=== PATIENT | male | born 1955 | race Caucasian/White ===

== ENCOUNTER 2017-07-13 13:25 | Emergency (ER) | payer OTHER ==
[~2017-07-13] VITALS: Ht 172.7 cm; Wt 86.4 kg
[~2017-07-13 13:25] MED LIST: GLYB2.5 PO; IBUP-2070 PO; LISI-660 PO; LOVA20 PO; METF500T4 PO; OXYC1TAB PO; PSEU-191 PO
[2017-07-13 14:07] LABS: GLUCOSE,POINT OF CARE 142 MG/DL (70-110)
[2017-07-13 14:35] VITALS: BP 143/93
[2017-07-13] MEDS ORDERED: KETOROLAC TROMETHAMINE 60 MG/2 ML VIAL IM ONE (14:45)
== END 2017-07-13 15:29 | disposition home or self-care (01) ==
LOC: EMS 13:27
DX: S40.011A Contusion of right shoulder, initial encounter (principal); S40.012A Contusion of left shoulder, initial encounter; M54.2 Cervicalgia; E11.9 Type 2 diabetes mellitus without complications; I10 Essential (primary) hypertension; E78.00 Pure hypercholesterolemia, unspecified; F17.210 Nicotine dependence, cigarettes, uncomplicated; V49.40XA Driver injured in collision with unspecified motor vehicles in traffic accident, initial encounter; Y93.89 Activity, other specified; Y92.89 Other specified places as the place of occurrence of the external cause; Y99.8 Other external cause status
CPT/HCPCS: 82962; 96372; 99283; J1885

== ENCOUNTER 2019-02-01 13:30 | Emergency (ER) | payer OTHER ==
[~2019-02-01] VITALS: Ht 175.3 cm; Wt 92.7 kg
[~2019-02-01 13:30] MED LIST changes: +METF-960 PO; -METF500T4 PO
[2019-02-01 13:55] LABS: GLUCOSE,POINT OF CARE 172 MG/DL (70-110)
[2019-02-01 16:50] VITALS: BP 126/90
== END 2019-02-01 16:50 | disposition home or self-care (01) ==
LOC: EMS 13:30
DX: L03.012 Cellulitis of left finger (principal); E11.9 Type 2 diabetes mellitus without complications; E78.00 Pure hypercholesterolemia, unspecified; I10 Essential (primary) hypertension; F17.210 Nicotine dependence, cigarettes, uncomplicated; Z79.84 Long term (current) use of oral hypoglycemic drugs; Z79.899 Other long term (current) drug therapy
CPT/HCPCS: 99406

== ENCOUNTER 2024-06-06 10:44 | Emergency (ER) | payer MEDICARE, MEDICAID ==
[~2024-06-06] VITALS: Ht 172.7 cm; Wt 81.0 kg
[~2024-06-06 10:44] MED LIST changes: -GLYB2.5 PO; +GLYB2.5T76 PO; +IBUP-1492 PO; -IBUP-2070 PO; -LISI-660 PO; +LISI-892 PO; -LOVA20 PO; +LOVA20TA73 PO; +METF-1211 PO; -METF-960 PO
[2024-06-06 11:10] VITALS: TEMP 98.2
[2024-06-06 11:51] LABS: GLUCOMETER DEV NAME(LOC) ER.7; GLUCOSE,POINT OF CARE 193 MG/DL (70-110)
[2024-06-06] MEDS ORDERED: IBUP-1492 PO (13:09)
[2024-06-06] MEDS ORDERED: PERCT PO (13:09)
[2024-06-06 14:10] VITALS: BP 126/76; PULSE 78; RESP 18; O2SAT 100
== END 2024-06-06 15:15 | disposition home or self-care (01) ==
LOC: EMS 10:44
DX: S62.326A Displaced fracture of shaft of fifth metacarpal bone, right hand, initial encounter for closed fracture (principal); E11.9 Type 2 diabetes mellitus without complications; I10 Essential (primary) hypertension; F17.210 Nicotine dependence, cigarettes, uncomplicated; W22.8XXA Striking against or struck by other objects, initial encounter; Y93.89 Activity, other specified; Y92.89 Other specified places as the place of occurrence of the external cause; Y99.8 Other external cause status
CPT/HCPCS: 82962; 99283